=== PATIENT | female | born 1990 | race Caucasian/White ===

== ENCOUNTER 2017-08-20 15:55 | Day surgery (SDC) | payer MEDICAID ==
[~2017-08-20 15:55] MED LIST: CYCL-1 PO; LORA-835 PO; MECL-111 PO; NO HOME MEDS; ONDA4TAB12 PO; ONDA4TAB6 PO; ONDA8TAB6 PO; [UNRECOGNIZED DRUG - CODE] PO
[2017-08-20 16:31] LABS: BASOPHILS # (AUTO) 0.1 X10'3 (0-0.2); BASOPHILS % (AUTO) 0.5 % (0-1); EOSINOPHILS # (AUTO) 0.5 X10'3 (0-0.9); EOSINOPHILS % (AUTO) 4.3 % (0-6); HEMATOCRIT 38.9 % (35.0-45.0); HEMOGLOBIN 13.2 g/dl (12.0-16.0); LYMPHOCYTES # (AUTO) 3.1 X10'3 (1.1-4.8); LYMPHOCYTES % (AUTO) 26.1 % (21-51); MEAN CORPUSCULAR HEMOGLOBIN 30.2 PG (27.0-31.0); MEAN CORPUSCULAR VOLUME 88.7 FL (78-98); MEAN PLATELET VOLUME 8.8 FL (7.4-10.4); MONOCYTES # (AUTO) 0.7 X10'3 (0-0.9); MONOCYTES % (AUTO) 5.8 % (2-12); NEUTROPHILS # (AUTO) 7.6 X10'3 (1.8-7.7); NEUTROPHILS % (AUTO) 63.3 % (42-75); PLATELET COUNT 321 X10'3 (140-440); RED BLOOD COUNT 4.38 X10'6 (4.20-5.60); RED CELL DISTRIBUTION WIDTH 13.4 % (11.5-14.5)
[2017-08-20 16:40] LABS: PARTIAL THROMBOPLASTIN TIME 27 SECONDS (22-32); PROTHROMBIN TIME 10.2 SECONDS (9.0-12.0)
[2017-08-20 16:57] LABS: ALANINE AMINOTRANSFERASE 37 U/L (12-78); ALBUMIN 3.8 G/DL (3.4-5.0); ALKALINE PHOSPHATASE 75 IU/L (46-116); ANION GAP 6 (8-16); ASPARTATE AMINO TRANSFERASE 15 U/L (10-37); BILIRUBIN,TOTAL 0.3 MG/DL (0.1-1.0); BLOOD UREA NITROGEN 10 MG/DL (7-18); BUN/CREATININE RATIO 13.3 (6.6-38.0); CALCIUM 8.7 MG/DL (8.5-10.1); CHLORIDE 103 MMOL/L (99-107); CREATININE 0.75 MG/DL (0.40-0.90); GLUCOSE 90 MG/DL (70-104); POTASSIUM 3.9 MMOL/L (3.5-5.1); SODIUM 140 MMOL/L (135-145); TOTAL CARBON DIOXIDE 30.7 MMOL/L (24-32); TOTAL PROTEIN 7.8 G/DL (6.4-8.2); eGFR > 90 ML/MIN
== END 2017-08-20 23:59 | disposition home or self-care (01) ==
LOC: SSTAY O 15:55
PROVIDERS: ATTEND Internal Medicine Cardiovascular Disease
DX: R07.9 Chest pain, unspecified (principal); R06.02 Shortness of breath; J45.909 Unspecified asthma, uncomplicated; Z98.890 Other specified postprocedural states; Z79.2 Long term (current) use of antibiotics; Z88.1 Allergy status to other antibiotic agents
CPT/HCPCS: 36415; 71046; 80053; 85025; 85610; 85730

== ENCOUNTER 2017-11-08 12:38 | Emergency (ER) | payer MEDICAID ==
[~2017-11-08] VITALS: Ht 157.5 cm; Wt 120.5 kg
[2017-11-08 14:18] VITALS: BP 128/77
== END 2017-11-08 14:21 | disposition home or self-care (01) ==
LOC: ER 12:39
DX: S93.401A Sprain of unspecified ligament of right ankle, initial encounter (principal); G43.909 Migraine, unspecified, not intractable, without status migrainosus; J45.909 Unspecified asthma, uncomplicated; Z88.1 Allergy status to other antibiotic agents; Z79.899 Other long term (current) drug therapy; X58.XXXA Exposure to other specified factors, initial encounter; Y93.89 Activity, other specified; Y92.89 Other specified places as the place of occurrence of the external cause; Y99.8 Other external cause status
CPT/HCPCS: 93971; 99284

== ENCOUNTER 2018-12-06 18:22 | Emergency (ER) | payer OTHER, MEDICAID ==
[~2018-12-06] VITALS: Ht 157.5 cm; Wt 100.0 kg
[~2018-12-06 18:22] MED LIST changes: +SERT25TA PO
[2018-12-06 18:46] VITALS: BP 132/88
[2018-12-06] MEDS ORDERED: ketorolac tromethamine 15mg/ml inj. IM ONE (20:55)
[2018-12-06] MEDS ORDERED: CYCL-1 PO (20:58)
== END 2018-12-06 21:21 | disposition home or self-care (01) ==
LOC: ER 18:23
DX: S16.1XXA Strain of muscle, fascia and tendon at neck level, initial encounter (principal); G43.909 Migraine, unspecified, not intractable, without status migrainosus; J45.909 Unspecified asthma, uncomplicated; Z98.890 Other specified postprocedural states; Z88.1 Allergy status to other antibiotic agents; Z79.899 Other long term (current) drug therapy; V89.2XXA Person injured in unspecified motor-vehicle accident, traffic, initial encounter; Y93.89 Activity, other specified; Y92.89 Other specified places as the place of occurrence of the external cause; Y99.8 Other external cause status
CPT/HCPCS: 96372; 99283; J1885

== ENCOUNTER 2019-09-04 09:18 | Emergency (ER) | payer MEDICAID, OTHER ==
[~2019-09-04] VITALS: Ht 160 cm; Wt 111.5 kg
[~2019-09-04 09:18] MED LIST changes: -MECL-111 PO; +MECL-159 PO
[2019-09-04 10:25] VITALS: BP 134/71
== END 2019-09-04 10:27 | disposition home or self-care (01) ==
LOC: ER 09:19
DX: M54.5 Low back pain (principal); G89.29 Other chronic pain; G43.909 Migraine, unspecified, not intractable, without status migrainosus; J45.909 Unspecified asthma, uncomplicated; Z98.890 Other specified postprocedural states; Z88.1 Allergy status to other antibiotic agents; Z79.899 Other long term (current) drug therapy
CPT/HCPCS: 99281

== ENCOUNTER 2020-05-31 17:31 | Emergency (ER) | payer MEDICAID, OTHER ==
[~2020-05-31] VITALS: Ht 160 cm; Wt 109.0 kg
[2020-05-31 18:30] LABS: URINE HCG NEGATIVE (NEG)
[2020-05-31 18:32] LABS: BASOPHILS # (AUTO) 0.1 X10'3 (0-0.2); BASOPHILS % (AUTO) 0.6 % (0-1); EOSINOPHILS # (AUTO) 0.4 X10'3 (0-0.9); EOSINOPHILS % (AUTO) 3.9 % (0-6); HEMATOCRIT 37.1 % (35.0-45.0); HEMOGLOBIN 12.8 g/dl (12.0-16.0); LYMPHOCYTES # (AUTO) 3.5 X10'3 (1.1-4.8); MEAN CORPUSCULAR HEMOGLOBIN 30.1 PG (27.0-31.0); MEAN CORPUSCULAR HGB CONC 34.5 g/dL (33.0-36.5); MEAN CORPUSCULAR VOLUME 87.2 FL (78-98); MEAN PLATELET VOLUME 8.2 FL (7.4-10.4); MONOCYTES # (AUTO) 0.7 X10'3 (0-0.9); NEUTROPHILS # (AUTO) 6.5 X10'3 (1.8-7.7); NEUTROPHILS % (AUTO) 58.5 % (42-75); PLATELET COUNT 374 X10'3 (140-440); RED BLOOD COUNT 4.26 X10'6 (4.20-5.60); RED CELL DISTRIBUTION WIDTH 14.5 % (11.5-14.5); WHITE BLOOD COUNT 11.1 X10'3 (4.5-11.0)
[2020-05-31 18:33] LABS: CLARITY,URINE SLIGHTLY CLOUDY (Clear); COLOR,URINE YELLOW (Yellow); GLUCOSE, URINE NEGATIVE (Neg); KETONES,URINE NEGATIVE (Neg); LEUKOCYTE ESTERASE ,URINE TRACE (Neg); NITRITES, URINE NEGATIVE (Neg); OCCULT BLOOD,URINE LARGE (Neg); PH,URINE 6.5 (4.8-8.0); PROTEIN,URINE 30 mg/dl (Neg); UROBILINOGEN,URINE 0.2 E.U/dL (0.2-1.0)
--- NOTE | 2020-05-31 18:36 | NUR ---
Pelvic exam and guaic supplies set up and ready when the provider is ready for the exam.
[2020-05-31] MEDS ORDERED: normal saline 1000ml 1,000 ML IV ONE ×2 (18:40)
[2020-05-31 18:44] LABS: PARTIAL THROMBOPLASTIN TIME 27 SECONDS (22-32)
[2020-05-31 18:44] LABS: UA COLLECTION TYPE CLN CATCH MIDSTREAM
[2020-05-31 18:45] LABS: ALANINE AMINOTRANSFERASE 31 U/L (12-78); ALBUMIN 4.2 G/DL (3.4-5.0); ALKALINE PHOSPHATASE 76 IU/L (46-116); ANION GAP 13 (8-16); ASPARTATE AMINO TRANSFERASE 14 U/L (10-37); BILIRUBIN,TOTAL 0.5 MG/DL (0.1-1.0); BLOOD UREA NITROGEN 12 MG/DL (7-18); BUN/CREATININE RATIO 16.2 (6.6-38.0); CALCIUM 9.4 MG/DL (8.5-10.1); CHLORIDE 102 MMOL/L (99-107); CREATININE 0.74 MG/DL (0.40-0.90); GLUCOSE 87 MG/DL (70-104); LIPASE 102 U/L (73-393); POTASSIUM 3.6 MMOL/L (3.5-5.1); SODIUM 140 MMOL/L (135-145); TOTAL CARBON DIOXIDE 25.5 MMOL/L (24-32); TOTAL PROTEIN 8.3 G/DL (6.4-8.2); eGFR > 90 ML/MIN
[2020-05-31 18:45] LABS: BACTERIA,URINE FEW /HPF (Neg); RBC,URINE 20-50 /HPF (0-2); SQUAMOUS EPITHELIAL CELL,UR FEW /LPF (FEW); WBC,URINE 0-4 /HPF (0-4)
--- NOTE | 2020-05-31 19:15 | NUR ---
Pelvic exam with VANESSA Hoover, chaperoned by this nurse. Pt tolerated well. Provider cancelled the rectal exam for hemoccult stool at this time.
[2020-05-31] MEDS ORDERED: MEDR10TA PO (19:19)
[2020-05-31 19:38] VITALS: BP 117/65
--- NOTE | 2020-05-31 19:39 | NUR ---
per sandra krueger pt was ok with only one l000ml of fluids before discharge
== END 2020-05-31 19:40 | disposition home or self-care (01) ==
LOC: ER 17:32
DX: N93.9 Abnormal uterine and vaginal bleeding, unspecified (principal); R00.2 Palpitations; G43.909 Migraine, unspecified, not intractable, without status migrainosus; J45.909 Unspecified asthma, uncomplicated; G89.29 Other chronic pain; Z98.890 Other specified postprocedural states; Z72.89 Other problems related to lifestyle; Z88.1 Allergy status to other antibiotic agents; Z79.2 Long term (current) use of antibiotics; Z79.899 Other long term (current) drug therapy
CPT/HCPCS: 36415; 80053; 81001; 81025; 83690; 85025; 85610; 85730; 87088; 93005; 96360; 99284; J7030

== ENCOUNTER 2020-07-10 05:38 | Day surgery (SDC) | payer MEDICAID ==
[2020-07-03 15:14] LABS: BASOPHILS # (AUTO) 0.1 X10'3 (0-0.2); BASOPHILS % (AUTO) 0.6 % (0-1); EOSINOPHILS # (AUTO) 0.6 X10'3 (0-0.9); EOSINOPHILS % (AUTO) 5.1 % (0-6); LYMPHOCYTES # (AUTO) 3.2 X10'3 (1.1-4.8); LYMPHOCYTES % (AUTO) 27.7 % (21-51); MEAN CORPUSCULAR HEMOGLOBIN 29.4 PG (27.0-31.0); MEAN CORPUSCULAR HGB CONC 33.7 g/dL (33.0-36.5); MEAN CORPUSCULAR VOLUME 87.2 FL (78-98); MEAN PLATELET VOLUME 8.5 FL (7.4-10.4); MONOCYTES # (AUTO) 0.7 X10'3 (0-0.9); MONOCYTES % (AUTO) 6.5 % (2-12); NEUTROPHILS # (AUTO) 6.9 X10'3 (1.8-7.7); NEUTROPHILS % (AUTO) 60.1 % (42-75); PRE OP HEMATOCRIT 37.4 % (35.0-45.0); PRE OP HEMOGLOBIN 12.6 g/dL (12.0-16.0); PRE OP PLATELET COUNT 378 X10'3 (140-440); RED BLOOD COUNT 4.29 X10'6 (4.20-5.60); RED CELL DISTRIBUTION WIDTH 14.3 % (11.5-14.5)
[2020-07-03 15:16] LABS: CLARITY,URINE SLIGHTLY CLOUDY (Clear); COLOR,URINE YELLOW (Yellow); GLUCOSE, URINE NEGATIVE (Neg); KETONES,URINE NEGATIVE (Neg); LEUKOCYTE ESTERASE ,URINE NEGATIVE (Neg); NITRITES, URINE NEGATIVE (Neg); OCCULT BLOOD,URINE TRACE-INTACT (Neg); PH,URINE 6.5 (4.8-8.0); PROTEIN,URINE NEGATIVE (Neg); UROBILINOGEN,URINE 0.2 E.U/dL (0.2-1.0)
[2020-07-03 15:17] LABS: UA COLLECTION TYPE NON-SPECIFIED
[2020-07-03 15:29] LABS: ALBUMIN 4.1 G/DL (3.4-5.0); ALBUMIN/GLOBULIN RATIO 1.1 (1.1-1.5); ALKALINE PHOSPHATASE 76 IU/L (46-116); BLOOD UREA NITROGEN 9 MG/DL (7-18); BUN/CREATININE RATIO 13.4 (6.6-38.0); CALCIUM 9.2 MG/DL (8.5-10.1); CHLORIDE 105 MMOL/L (99-107); CREATININE 0.67 MG/DL (0.40-0.90); PRE OP ALT 27 U/L (30-65); PRE OP ANION GAP 6 (8-16); PRE OP AST 10 U/L (10-37); PRE OP BILIRUB, TOTAL 0.4 MG/DL (0.0-1.0); PRE OP GLUCOSE 84 MG/DL (70-104); PRE OP POTASSIUM 3.5 MMOL/L (3.4-5.1); PRE OP SODIUM 141 MMOL/L (135-145); TOTAL CARBON DIOXIDE 29.8 MMOL/L (24-32); eGFR > 90 ML/MIN
[2020-07-03 15:35] LABS: HCG SERUM QL NEGATIVE
[2020-07-03 15:39] LABS: BACTERIA,URINE FEW /HPF (Neg); RBC,URINE 0-2 /HPF (0-2); SQUAMOUS EPITHELIAL CELL,UR FEW /LPF (FEW)
[2020-07-03 15:40] LABS: WBC,URINE 0-4 /HPF (0-4)
[~2020-07-10] VITALS: Ht 160 cm; Wt 64.4 kg
[2020-07-10] VITALS (11 sets, daily range): BP systolic 119–143; BP diastolic 61–84
[~2020-07-10 05:38] MED LIST changes: +ACET-1025 PO; +ALBU8HFA PO; -CYCL-1 PO; +IBUP-1984 PO; -LORA-835 PO; -MECL-159 PO; -NO HOME MEDS; -ONDA4TAB12 PO; -ONDA4TAB6 PO; -ONDA8TAB6 PO; +PNV1TABL75 PO; -SERT25TA PO; -[UNRECOGNIZED DRUG - CODE] PO; +ceFAZolin 2gm in dextrose, iso 50 ML IV ONE; +famotidine 20mg tablet PO ONE; +ringers solution, lacted 1,000 ML IV SCH
[2020-07-10] MEDS ORDERED: LIDOcaine 1% (10mg/ml) 2ml vial ONE (05:48)
[2020-07-10] MEDS ORDERED: BUPIVAcaine/PF 2.5 mg/ml (0.25%) 30ml vial ONE (06:36)
[2020-07-10] MEDS ORDERED: ondansetron/PF 4mg/2ml inj ONE ×2 (07:08→08:00)
[2020-07-10] MEDS ORDERED: fentaNYL/PF 50MCG/1 ML 2ML syringe ONE ×2 (07:16→08:07)
[2020-07-10] MEDS ORDERED: midazolam 2 mg/2 ml injection ONE (07:17)
[2020-07-10] MEDS ORDERED: sevoflurane 250ml liquid IH ONE (07:37)
[2020-07-10] MEDS ORDERED: ringers solution, lacted 1,000 ML IV SCH (07:40)
[2020-07-10] MEDS ORDERED: proCHLORperazine 10 MG/2 ml inj IV PRN (07:40)
[2020-07-10] MEDS ORDERED: morphine 4 MG/ML inj SYRINge IV PRN (07:40)
[2020-07-10] MEDS ORDERED: morphine 2 MG/ML inj. syringe IV PRN (07:40)
[2020-07-10] MEDS ORDERED: ondansetron/PF 4mg/2ml inj IV PRN (07:40)
[2020-07-10] MEDS ORDERED: meperidine/PF 25mg/ml syringe IV PRN ×3 (07:40)
[2020-07-10] MEDS ORDERED: LIDOcaine 2% (20mg/ml) 5ml vial ONE (07:52)
[2020-07-10] MEDS ORDERED: rocuronium 10mg/ml inj IV ONE (07:52)
[2020-07-10] MEDS ORDERED: propofol inj 20 ML IV ONE (07:52)
[2020-07-10] MEDS ORDERED: dexamethasone sod phosphate 4mg/ml inj. ONE (08:00)
[2020-07-10] MEDS ORDERED: neostigmine methylsulfate 1 MG/ML 10ml vial ONE (08:00)
[2020-07-10] MEDS ORDERED: glycopyrrolate 0.2mg/ml inj ONE (08:00)
[2020-07-10] MEDS ORDERED: acetaminophen 1,000mg/100ml IV 100 ML IV ONE (08:53)
--- NOTE | 2020-07-10 09:35 | NUR ---
Patient arrived via gurney from OR. 20g PIV R arm. LR 100ml/hr. Bandaids to left abdomen x4, CDI. 10L mask on, 100% SpO2, VSS. Will continue to assess. Glasses and 2 piece denture at bedside. Addendum: 07/10/20 at 1001 by Mona Shepherd RN Amended: Links added.
[2020-07-10] MEDS ORDERED: albuterol 60 PUFF/8GM Inhaler IH ONE (10:27)
--- NOTE | 2020-07-10 11:05 | NUR ---
PATIENT HAS VERBALIZED UNDERSTANDING FOR DC PAPERWORK, OPPORTUNITY TO ASK QUESTIONS GIVEN AND PATIENT COMFORTABLE WITH DC. IV TAKEN OUT WITHOUT COMPLICATION. PATIENT HAS MET ALL DC CRITERIA FOR DC HOME. I HAVE REVIEWED D/C INSTRUCTIONS WITH OUT VIA WHEELCHAIR WHERE PATIENT WAS TAKEN HOME WITH ALL BELONGINGS. [facility] GAVE PATIENT TRANSPORT HOME. VSS. NAUSEATED AND MEDICATED PRIOR TO DC. Addendum: 07/10/20 at 1116 by Daniel Pacheco RN, RN Amended: Links added.
== END 2020-07-10 11:05 | disposition home or self-care (01) ==
LOC: PAS 05:38
PROVIDERS: ATTEND Surgery
DX: K43.2 Incisional hernia without obstruction or gangrene (principal); I10 Essential (primary) hypertension; J45.909 Unspecified asthma, uncomplicated; F41.9 Anxiety disorder, unspecified; E66.9 Obesity, unspecified; Z68.25 Body mass index [BMI] 25.0-25.9, adult; Z88.8 Allergy status to other drugs, medicaments and biological substances; F17.210 Nicotine dependence, cigarettes, uncomplicated; Z98.890 Other specified postprocedural states; Z20.828 Contact with and (suspected) exposure to other viral communicable diseases; Z79.899 Other long term (current) drug therapy
CPT/HCPCS: 36415; 49654; 80053; 81001; 82948; 84703; 85025; 87635; C1713; C1758; C1781; J0131; J1100; J2001; J2175; J2250; J2270; J2405; J2704; J2710; J3010; J3490; J7120; S2900; A4215; A4618

== ENCOUNTER 2021-04-14 14:55 | Emergency (ER) | payer MEDICAID ==
[~2021-04-14] VITALS: Ht 175.3 cm; Wt 90.9 kg
[~2021-04-14 14:55] MED LIST changes: -ceFAZolin 2gm in dextrose, iso 50 ML IV ONE; -famotidine 20mg tablet PO ONE; -ringers solution, lacted 1,000 ML IV SCH
[2021-04-14 15:15] VITALS: BP 134/72
== END 2021-04-14 15:18 | disposition home or self-care (01) ==
LOC: ER 14:55
DX: N64.4 Mastodynia (principal); G43.909 Migraine, unspecified, not intractable, without status migrainosus; J45.909 Unspecified asthma, uncomplicated; G89.29 Other chronic pain; Z86.16 Personal history of COVID-19; Z98.891 History of uterine scar from previous surgery; Z72.89 Other problems related to lifestyle; Z79.899 Other long term (current) drug therapy
CPT/HCPCS: 99281

== ENCOUNTER 2022-11-18 08:15 | Emergency (ER) | payer MEDICAID | END 2022-11-18 08:46 | disposition left against medical advice (07) | LOC: ER 08:16 | DX: R10.9 Unspecified abdominal pain (principal); Z53.21 Procedure and treatment not carried out due to patient leaving prior to being seen by health care provider ==

== ENCOUNTER 2024-04-14 07:31 | Emergency (ER) | payer MEDICAID ==
[~2024-04-14] VITALS: Ht 157.5 cm; Wt 94.1 kg
[2024-04-14 08:02] LABS: BILIRUBIN,URINE NEGATIVE (Neg); CLARITY,URINE CLOUDY (Clear); COLOR,URINE YELLOW (Yellow); GLUCOSE, URINE NEGATIVE (Neg); KETONES,URINE NEGATIVE (Neg); LEUKOCYTE ESTERASE ,URINE SMALL (Neg); NITRITES, URINE POSITIVE (Neg); OCCULT BLOOD,URINE SMALL (Neg); PROTEIN,URINE TRACE mg/dl (Neg); UROBILINOGEN,URINE 0.2 E.U/dL (0.2-1.0)
[2024-04-14 08:03] LABS: UA COLLECTION TYPE CLN CATCH MIDSTREAM
[2024-04-14 08:12] LABS: BACTERIA,URINE 4+ /HPF (Neg); MUCUS STRANDS NONE SEEN /LPF (Neg); SQUAMOUS EPITHELIAL CELL,UR FEW /LPF (FEW); TRANSITIONAL EPI CELLS,URINE FEW /HPF; WBC CLUMPS,URINE FEW /HPF (NEGATIVE); WBC,URINE TNTC /HPF (0-4)
[2024-04-14 08:15] LABS: URINE HCG NEGATIVE (NEG)
[2024-04-14] MEDS ORDERED: NITR100C6 PO (08:19)
[2024-04-14] MEDS: nitrofuran monohydrate/nitrofuran macrocrysal 100 MG (MacroBID) capsule PO ONE (08:23)
[2024-04-14 08:36] VITALS: BP 150/90; PULSE 70; RESP 16; TEMP 98.5; O2SAT 95
== END 2024-04-14 08:40 | disposition home or self-care (01) ==
LOC: ER 07:31
DX: N39.0 Urinary tract infection, site not specified (principal); G43.909 Migraine, unspecified, not intractable, without status migrainosus; J45.909 Unspecified asthma, uncomplicated; G89.29 Other chronic pain; M54.9 Dorsalgia, unspecified; Z79.899 Other long term (current) drug therapy; Z72.89 Other problems related to lifestyle; Z98.890 Other specified postprocedural states
CPT/HCPCS: 81001; 81025; 87077; 87088; 87186; 99283

== ENCOUNTER 2024-05-05 10:37 | Emergency (ER) | payer MEDICAID ==
[~2024-05-05] VITALS: Ht 160 cm; Wt 91.5 kg
[~2024-05-05 10:37] MED LIST changes: +NITR100C6 PO
[2024-05-05 11:40] VITALS: BP 123/84; PULSE 69; RESP 16; TEMP 98.5; O2SAT 99
== END 2024-05-05 11:43 | disposition home or self-care (01) ==
LOC: ER 10:38
DX: I10 Essential (primary) hypertension (principal); J45.909 Unspecified asthma, uncomplicated; G89.29 Other chronic pain; M54.9 Dorsalgia, unspecified; G43.909 Migraine, unspecified, not intractable, without status migrainosus; Z72.89 Other problems related to lifestyle; Z79.899 Other long term (current) drug therapy
CPT/HCPCS: 93005; 99283

== ENCOUNTER 2025-06-10 12:06 | Emergency (ER) | payer MEDICAID ==
[~2025-06-10] VITALS: Ht 160 cm; Wt 87.2 kg
[2025-06-10 12:08] VITALS: TEMP 97.6
--- NOTE | 2025-06-10 12:37 | Physician Documentation ---
History of Present Illness ~ Chief Complaint: Abdominal Pain w/vomiting Stated Complaint: INFECTION ON STOMACH AREA Time Seen by MD: 12:20 Primary Medical Doctor: Belen Lopez HPI 34-year-old female presenting with two weeks of nausea, vomiting and developing abdominal pain around her umbilicus. The patient has a history of multiple abdominal surgeries and states over the past two weeks she has been very nauseated and has vomited on several occasions including earlier this morning. Additionally she states that her belly button feels inflamed and it feels like there is something sticking out. When she goes to the bathroom she reports complete watery diarrhea that is nonbloody. She denies any blood in her emesis. She denies any fever, chills or any other associated symptoms. Medication Reconciliation Allergies: Coded Allergies: No Known Allergies (Unverified , 06/10/25) Scheduled Nitrofurantoin Monohyd/M-Cryst (Macrobid 100 mg Capsule), 1 CAP PO Q12H Pnv No.122/Iron/Folic Acid ( Multi Tablet), 1 TAB PO DAILY, (Reported) Scheduled PRN Acetaminophen (Tylenol Extra Strength), 2 TAB PO Q6H PRN PRN for pain or fever, (Reported) Ibuprofen* (Motrin*), 800 MG PO Q8H PRN for pain, (Reported) albuterol inhaler (Pro-Air Inhaler), 1-2 PUFFS PO Q4H PRN for shortness of breath, (Reported) Past Medical History Past Medical History: Migraine, Asthma, Chronic Back Pain Past Surgical History: Alcohol Use: Occasionally Drug Use: none Lives with: Family Lives In: Home Occupation: employed Review of Systems All Other Systems at this time: Reviewed and Negative Physical Exam Vital Signs: Temperature: 97.6, Source: Temporal, Heart Rate: 76, Respiratory Rate: 18, BP: 144/84, Pulse Oximetry: 100, Weight: 87.200 Oxygen Flow Rate: 0 Physical Exam I have reviewed the triage vitals. CONST: Well developed and well nourished. In no acute distress HENT: Head Atraumatic EYES: Pupils are equal, round and reactive to light. Normal conjunctiva NECK: Normal range of motion. Supple. CARDIO: Normal rate and regular rhythm. No murmurs, rubs, or gallops. S1, S2. PULM/CHEST: No respiratory distress. Lungs clear to auscultation. No wheeze ABD: Soft . Multiple surgical scars present. There is an area of tenderness over the umbilicus with slight bulging that is reducible. There is some erythema on the umbilicus as well. Nondistended. Bowel sounds normal. No guarding. : Exam deferred MSK: No edema. No deformity. NEURO: Alert and oriented to person, place and time. Moving all extremities SKIN: Warm and dry. PSYCH: Normal mood and affect. Good eye contact. Progress Results/Orders Results/Orders Orders - МАРИНА MCDONNELL MD Ct Abdomen Pelvis (06/10/25 14:54) Completed Orders - МАРИНА MCDONNELL MD Hcg, Ur Ql (06/10/25 12:13) Cbc/Diff (06/10/25 12:13) Lipase (06/10/25 12:13) CMP (06/10/25 12:13) Ondansetron Disint. Tablet (Zofran Odt T (06/10/25 12:35) Ct Abdomen Pelvis (06/10/25 14:54) Iohexol 300mg/Ml 100ml Inj. (Omnipaque-3 (06/10/25 13:09) Ua W/Microscopic, Cult If Ind (06/10/25 12:15) Medications Received in ER Medications (Trade) Dose Ordered Sig/Joesph Route PRN Reason Start Time Stop Time Status Last Admin Dose Admin (Zofran ODT tablet) 4 mg ONCE ONCE PO 06/10/25 12:35 06/10/25 12:36 DC 06/10/25 12:43 4 MG Vital Signs 06/10/25 06/10/25 06/10/25 12:08 12:45 12:45 Temp 97.6 Pulse 76 68 Resp 18 16 16 B/P (MAP) 144/84 111/85 (94) Pulse Ox 100 98 O2 Flow Rate 0 0 Laboratory Tests Test 06/10/25 12:15 06/10/25 12:35 Urine Specimen Description Cln catch midstream Urine Color Yellow Urine Clarity Clear Urine pH 6.0 Urine Specific [place] <=1.005 Urine Protein Negative Urine Glucose (UA) Negative Urine Ketones Negative Urine Occult Blood Trace-intact Urine Nitrite Negative Urine Bilirubin Negative Urine Urobilinogen 0.2 Urine Leukocyte Esterase Negative Urine RBC 0-2 Urine WBC None seen Urine Squamous Epithelial Cells Few Urine Transitional Epithelial Cells Few Urine Bacteria None seen Urine Mucus Few Urine Culture Indicated Not ind Volume Urine Centrifuged 10 ml Urine HCG, Qualitative Negative Urine Comment White Blood Count 7.3 Red Blood Count 4.31 Hemoglobin 13.3 Hematocrit 38.2 Mean Corpuscular Volume 88.5 Mean Corpuscular Hemoglobin 30.9 Mean Corpuscular Hemoglobin Concent 34.9 Red Cell Distribution Width 13.1 Platelet Count 362 Mean Platelet Volume 8.4 Neutrophils (%) (Auto) 54.0 Lymphocytes (%) (Auto) 26.6 Monocytes (%) (Auto) 13.1 H Eosinophils (%) (Auto) 5.6 Basophils (%) (Auto) 0.7 Neutrophils # (Auto) 3.9 Lymphocytes # (Auto) 1.9 Monocytes # (Auto) 1.0 H Eosinophils # (Auto) 0.4 Basophils # (Auto) 0.1 CBC Comment Sodium Level 138 Potassium Level 3.7 Chloride Level 104 Carbon Dioxide Level 27.0 Anion Gap 7 L Blood Urea Nitrogen 10 Creatinine 0.65 Estimated GFR/1.73 m2 > 90 BUN/Creatinine Ratio 15.4 Glucose Level 84 Calcium Level 8.3 L Total Bilirubin 0.5 Aspartate Amino Transf (AST/SGOT) 13 Alanine Aminotransferase (ALT/SGPT) 18 Alkaline Phosphatase 64 Total Protein 7.5 Albumin 3.9 Globulin 3.6 Albumin/Globulin Ratio 1.1 Lipase 33 Chemistry Comments EKG/XRAY/CT/US/VASC/MRI CT : Impression Exam: CT CT ABDOMEN PELVIS W/ IV CONTRAST History: abdominal pain w/ emesis Comparison Study: None TECHNIQUE: Multidetector CT of the abdomen and pelvis with IV contrast. Axial, coronal and sagittal multiplanar reformats were obtained from the axial data set by the technologist. Radiation Dose Information: CT Dose: CTDI volume is 16.49 mGy. Dose-length product is 816 mGy*cm FINDINGS: The lung bases are clear. Partially visualized heart is unremarkable. Mild hepatomegaly. Otherwise, liver, spleen, pancreas and adrenal glands unremarkable. Status post cholecystectomy. Kidneys, ureters and urinary bladder are unremarkable. Uterus and adnexa are unremarkable. Stomach is unremarkable. Mild wall Thickening of proximal small bowel loops. The remainder of the small bowel loops are unremarkable. Appendix is unremarkable. Large amount of fecal material within the ascending and transverse colons with small amount of fecal material within the remainder of the colon. No evidence of intraperitoneal free air. Trace amount of free fluid within the cul-de-sac which is most likely physiologic. No evidence of aortic aneurysm or dissection. Slightly prominent mesenteric lymph nodes measuring up to 0.7 cm in short axis. Soft tissues are unremarkable. No evidence of acute osseous abnormalities. IMPRESSION: Mild wall Thickening of proximal Small bowel loops which may be due to inadequate distention /mild enteritis. Medical Decision Making Additional information obtaine: N/A Findings - Diff Dx GI Bleed:Consideration: Unlikely: AE fistula, Angiodysplasia, Bleeding diathesis, Blood loss anemia, Carcinoma, Diverticulosis, Diverticulitis, Esophageal varicies, Esophagitis, Gastritis, Gastroenteritis, Inflammatory BD, Evelia-Crowley syndrome, Meckel's diverticulum, PUD, Other Diff Dx Pain:Considerations: Unlikely: AAA, -Complete, - Incomplete, -Inevitable, -Missed, -Threatened, Abruptio placentae, Angina/IL, Aortic dissection, Appendicitis, Bowel obstruction, Cholangitis, Cholecystitis, Cholelithasis, Constipation, Diverticular disease, Dysmenorrhea, Ectopic , Esophageal rupture, Esophagitis, Gastritis/PUD, Gastroenteritis, GI hemorrhage, Hernia, Hepatitis, Inflammatory BD, Ischemic bowel, Mass, Ovarian cyst/torsion, Pancreatitis, PID, Porphyria, Trauma, intraabdominal, Urinary obstruction, Urinary tract infection, Urolithiasis, Other Diff Dx N/V/D:Considerations: Unlikely: Appendicitis, Bowel obstruction, Dehydration, DKA, Diarrhea - bacterial, Diarrhea - parasitic, Diarrhea - viral, Diverticulitis, Diverticulosis, Drug toxicity, Electrolyte imbalance, Food poisoning, Gastroenteritis, GE reflux, GI bleed, Hepatitis, Hernia, Hypovolemia, Hypotension, Inflammatory BD, Impaction, Malnutrition, Pancreatitis, , PUD, Renal failure, Urolithiasis, Urinary obstruction, UTI, Other Diff Dx Rectal:Considerations: Unlikely: Fissure, Fistula, Foreign body, Impaction, Perirectal abscess, Rectal prolapse, Subcutaneous abscess, Thrombosed hemorrhoid, Ulcer, UTI, Other Additional Comments 34-year-old female presenting with what appears to be gastroenteritis. Given the duration has been two weeks and the patient is not improving isolated it is prudent to treat it with a course of antibiotic. I will prescribe her a three day course of azithromycin. Advised her to drink plenty of fluids. Her lab workup as well as her CT were grossly unremarkable. CT showed just some enteritis. Patient looks stable and nontoxic. Vitals are normal. Can discharge home with instructions to follow up with PCP in the next three days. Return to the ED with any acutely worsening symptoms. Patient expressed full understanding of the assessment and plan and was amenable. Departure Disposition: 01 HOME / SELF CARE / HOMELESS Impression: Primary Impression: Acute gastroenteritis Condition: Stable Discharge Instructions: Campylobacter Gastroenteritis Additional Instructions: Please take your medication as prescribed. Ensure you are drinking plenty of fluids. Continue with Pepto-Bismol as needed. Continue with Prilosec daily. Follow up closely with her primary care physician in the next 2-3 days. Return to the ER with any acutely worsening symptoms. Referrals: NO PRIMARY CARE PROVIDER (PCP) Prescriptions Azithromycin (Azithromycin) 500 Mg Tablet 1 TAB PO DAILY for 3 Days, #3 TAB 0 Refills Prov: МАРИНА MCDONNELL MD 06/10/25 Signature Scribe Signature: - Attestation: - МАРИНА MCDONNELL MD Jun 10, 2025 12:37
[2025-06-10] MEDS: ondansetron 4mg rapidly disintigrating tab PO ONE (12:43)
[2025-06-10 12:50] LABS: MEAN PLATELET VOLUME 8.4 FL (7.4-10.4); RED CELL DISTRIBUTION WIDTH 13.1 % (11.5-14.5)
[2025-06-10 13:04] LABS: CREATININE 0.65 MG/DL (0.40-0.90); TOTAL CARBON DIOXIDE 27.0 MMOL/L (24-32); eCRCL 99 ML/MIN; eGFR > 90 ML/MIN
[2025-06-10 13:05] LABS: URINE HCG NEGATIVE (NEG)
[2025-06-10 13:06] LABS: LEUKOCYTE ESTERASE ,URINE NEGATIVE (Neg); NITRITES, URINE NEGATIVE (Neg); OCCULT BLOOD,URINE TRACE-INTACT (Neg)
[2025-06-10] MEDS ORDERED: iohexol 300mg/ml 100ml inj. ONE (13:09)
[2025-06-10 13:10] LABS: UA COLLECTION TYPE CLN CATCH MIDSTREAM
[2025-06-10 13:11] LABS: MUCUS STRANDS FEW /LPF (Neg); SQUAMOUS EPITHELIAL CELL,UR FEW /LPF (FEW)
--- NOTE | 2025-06-10 15:09 | RADIOLOGY REPORT ---
Exam: CT CT ABDOMEN PELVIS W/ IV CONTRAST History: abdominal pain w/ emesis Comparison Study: None TECHNIQUE: Multidetector CT of the abdomen and pelvis with IV contrast. Axial, coronal and sagittal multiplanar reformats were obtained from the axial data set by the technologist. Radiation Dose Information: CT Dose: CTDI volume is 16.49 mGy. Dose-length product is 816 mGy*cm FINDINGS: The lung bases are clear. Partially visualized heart is unremarkable. Mild hepatomegaly. Otherwise, liver, spleen, pancreas and adrenal glands unremarkable. Status post cholecystectomy. Kidneys, ureters and urinary bladder are unremarkable. Uterus and adnexa are unremarkable. Stomach is unremarkable. Mild wall Thickening of proximal small bowel loops. The remainder of the small bowel loops are unremarkable. Appendix is unremarkable. Large amount of fecal material within the ascending and transverse colons with small amount of fecal material within the remainder of the colon. No evidence of intraperitoneal free air. Trace amount of free fluid within the cul-de-sac which is most likely physiologic. No evidence of aortic aneurysm or dissection. Slightly prominent mesenteric lymph nodes measuring up to 0.7 cm in short axis. Soft tissues are unremarkable. No evidence of acute osseous abnormalities. IMPRESSION: Mild wall Thickening of proximal Small bowel loops which may be due to inadequate distention /mild enteritis.
[2025-06-10] MEDS ORDERED: AZIT500T9 PO (15:44)
[2025-06-10 16:13] VITALS: BP 112/75; PULSE 57; RESP 16; O2SAT 98
== END 2025-06-10 16:20 | disposition home or self-care (01) ==
LOC: ER 12:06
DX: K52.9 Noninfective gastroenteritis and colitis, unspecified (principal); J45.909 Unspecified asthma, uncomplicated; G43.909 Migraine, unspecified, not intractable, without status migrainosus
CPT/HCPCS: 36415; 74177; 80053; 81001; 81025; 83690; 85025; 99285; Q9967